=== PATIENT | male | born 1965 | race Caucasian/White ===

== ENCOUNTER 2022-12-07 13:22 | Emergency (ER) | payer MEDICAID, SELFPAY ==
[2022-12-07 13:31] VITALS: BP 133/87; PULSE 61; RESP 18; TEMP 37.1; O2SAT 99
--- NOTE | 2022-12-07 13:45 | DI.RAD_ITS ---
Exam(s) XR SHOULDER RT COMPLETE 2+V EXAM: XR SHOULDER RT COMPLETE 2+V CLINICAL HISTORY: pain, injury. TECHNIQUE: 2D digital imaging was performed of the right shoulder. Five images were obtained. AP, Grashey, Y-view and axillary views were obtained. COMPARISON: No exams were available for comparison FINDINGS: BONES: No acute fracture is present. No bony destructive lesion is seen. JOINTS: No dislocation present. Degenerative changes at the AC joint. SOFT TISSUE: Old well corticated osseous densities are seen adjacent to the cortical clavicular ligam ent region and the acromioclavicular ligament region. IMPRESSION: No acute fracture or dislocation. DATA REPOSITORY: RADIATION DOSE DELIVERED:
--- NOTE | 2022-12-07 14:49 | W.ED.GENAD ---
Discharge Plan Disposition Patient Disposition: Home Condition: Stable Discharge Details Clinical Impression: Right shoulder strain Primary Care Provider: None,None ED Provider: Tatum Strickland Discharge Instructions Instructions: How to Use a Sling (ED), Shoulder Sprain (ED), Shoulder Pain (ED) Stand Alone Forms: Work Release Referrals: [facility]ED[facility] [OTHER] - 3 days Discharge Data Discharge Physician: Tatum Strickland Medical Decision Making 57-year-old male presents for evaluation of right shoulder pain after injury. Patient is neurologically intact. He has decreased range of motion at shoulder secondary to pain. I am concerned about possible rotator cuff injury. X-ray is negative for acute fracture or dislocation. He does have noted prior injury. Patient is placed in a sling for comfort. I have recommended close follow-up with orthopedics for further evaluation. He is educated on appropriate dosage of ibuprofen and Aleve. He understands indications to return. He is given a note for work. HPI General Date/Time Provider Initiated Documentation: 12/07/22 13:35. HPI Narrative: 57 year-old male presents with right arm injury. Patient states that he was carrying something at work today when he fell landing down on his right elbow and pushing his right shoulder upward. He does have a prior history of shoulder separation. He has significant discomfort in his shoulder with decreased range of motion at this time. He denies any numbness or tingling. He is able to move at his elbow and wrist. He recently moved here from [place] and does not have a local orthopedic. He did take Aleve prior to ED arrival. Denies any other injuries. General Stated Complaint: Orthopedic NORY: 3 Review of Systems Narrative: Remainder of review of systems otherwise negative except for as in HPI x5. PFSH All Active Problems Right shoulder strain (Acute) Social History Smoking/Tobacco Use Status: Never Smoking risk assessment performed?: Yes Alcohol Intake: current Alcohol Intake frequency: 0-2 drinks per day Drug use: Occasionally Substance use type: marijuana Housing: house Exam Narrative Exam Narrative: General: non-toxic, no respiratory distress, comfortable HEENT: normocephalic, atraumatic, lids and lashes normal, PERRL, EOMI, anicteric sclera, no conjunctival injection, moist oral mucosa Musculoskeletal: Diffuse pain to palpation right shoulder, no obvious deformity, no pain to palpation over right clavicle, able to range at right elbow and wrist, 2+ radial pulses, sensation intact, able to move fingers, decreased range of motion right shoulder secondary to pain. I am able to passively range shoulder up to 100 degrees with discomfort, no cervical vertebral tenderness, otherwise full range of motion of arms and legs, no tenderness to palpation. no clubbing, cyanosis, or edema Neurologic: appropriate for age, strength normal Psych: alert and oriented Skin: no petechiae, no lesions, warm and dry Course Vital Signs Vital signs: Vital Signs Temperature 37.1 C 12/07/22 13:31 Pulse 61 12/07/22 13:31 Respiratory Rate 18 12/07/22 13:31 Blood Pressure 133/87 12/07/22 13:31 Pulse Oximetry 99 12/07/22 13:31 Temperature 37.1 C 12/07/22 13:31 Temperature Source Skin 12/07/22 13:31 Pulse 61 12/07/22 13:31 Respiratory Rate 18 12/07/22 13:31 Respiratory Effort Normal 12/07/22 13:34 Blood Pressure 133/87 12/07/22 13:31 Blood Pressure Position Sitting 12/07/22 13:31 Pulse Oximetry 99 12/07/22 13:31 Oxygen Delivery Method Room Air 12/07/22 13:31 Oxygen Flow Rate 0 12/07/22 13:31
== END 2022-12-07 14:54 | disposition home or self-care (01) ==
PROVIDERS: Emergency Provider Emergency Medicine Emergency Medical Services
DX: S46.911A Strain of unspecified muscle, fascia and tendon at shoulder and upper arm level, right arm, initial encounter (principal); X50.0XXA Overexertion from strenuous movement or load, initial encounter
CPT/HCPCS: 99283; 73030

== ENCOUNTER 2024-06-09 12:33 | Outpatient (REF) | payer SELFPAY ==
[2024-06-09 16:15] LABS: Abs Immature Grans 0.01 10^3/uL (0.0-0.06); Absolute Basophil Count 0.07 10^3/uL (0.0-0.2); Absolute Eosinophil Count 0.39 10^3/uL (0.0-0.7); Absolute Lymphocyte Count 2.37 10^3/uL (1.2-3.4); Absolute Monocyte Count 0.54 10^3/uL (0.1-0.8); Absolute Neutrophil Count 2.79 10^3/uL (1.2-6.7); Basophils % 1.1 %; Eosinophils % 6.3 %; HCT 42.8 % (40.0-50.0); HGB 14.9 g/dL (13.5-17.5); Immature Grans % 0.2 %; Lymphocytes % 38.4 %; MCH 31.8 pg (27.0-33.0); MCHC 34.8 % (32.0-36.0); MCV 91 fL (80-95); Monocytes % 8.8 %; Neutrophils % 45.2 %; Platelet Count 279 10^3/uL (130-400); RBC 4.69 10^6/uL (4.36-5.78); RDW 12.6 % (11.8-14.1); RDW-SD 41.5 fL; WBC 6.17 10^3/uL (4.4-10.8)
[2024-06-09 16:25] LABS: WBC Negative HPF (0-5)
[2024-06-09 16:26] LABS: Bacteria Rare HPF (Negative); C & S Indicated? No; Casts Negative LPF (Negative); Crystals Few Amorphous HPF (Negative); Epithelial Cells Negative HPF (Negative); Mucus Negative (Negative); Other Cells Negative (Negative)
[2024-06-09 16:47] LABS: Hemoglobin A1C 5.4 % (<5.7)
[2024-06-09 17:18] LABS: ALT 28 U/L (16-63); AST 17 U/L (15-37); Albumin 4.1 g/dL (3.4-5.0); Alkaline Phosphatase 70 U/L (46-116); Anion Gap 11.4 mmol/L (3-11); BUN 21 mg/dL (7-18); Bilirubin, Total 0.3 mg/dL (0.2-1.0); CO2 24.6 mmol/L (21.0-32.0); CREATININE 0.9 mg/dL (0.70-1.30); Calcium 9.5 mg/dL (8.5-10.1); Calculated LDL 99 mg/dL (<100); Chloride 107 mmol/L (98-107); Cholesterol 210 mg/dL (<200); Estimated GFR 99.62 (mL/min/1.73m2); Glucose 112 mg/dL (74-106); HDL Cholesterol 59 mg/dL (>or=40); Potassium 4.3 mmol/L (3.5-5.1); Sodium 143 mmol/L (136-145); Total Protein 7.4 g/dL (6.4-8.2); Triglyceride 263 mg/dL (<150); Vitamin D 25 Total 10 ng/mL (30-100)
[2024-06-09 22:20] LABS: HBs Antibody, Quant <3.1 mIU/mL (See Note); Hepatitis B Surface Ab Negative (See Note)
[2024-06-09 23:06] LABS: Hep A Total Ab w Rflx IgM Negative (Negative)
[2024-06-10 12:05] LABS: Varicella IgG Antibody Negative (See Note)
[2024-06-10 12:11] LABS: Measles IgG Antibody Positive (See Note); Mumps Antibody IgG Negative (See Note); Rubella IgG Ab (UVM) Positive (See Note)
== END 2024-06-09 12:34 | disposition home or self-care (01) ==
LOC: NCHCN 12:33
PROVIDERS: PCP Family Medicine; Visit Provider Family Medicine
DX: Z02.1 Encounter for pre-employment examination (principal); Z01.84 Encounter for antibody response examination
CPT/HCPCS: 80053; 80061; 82306; 86706; 86709; 86787; 81015; 83036; 84443; 85025; 86735; 86762; 86765